=== PATIENT | male | born 1960 | race African-American/Black ===

== ENCOUNTER 2018-03-05 17:42 | Emergency (ER) | payer OTHER ==
[~2018-03-05] VITALS: Ht 189.9 cm; Wt 82.0 kg
[~2018-03-05 17:42] MED LIST: KETO10 PO; Z.0.NO CURRENT MEDS
[2018-03-05 17:48] VITALS: BP 154/78; PULSE 73; RESP 20; TEMP 97.8; O2SAT 99
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
[2018-03-05] MEDS ORDERED: IBUPROFEN 600 MG TAB PO ONE (18:15)
--- NOTE | 2018-03-05 18:38 | RADRPT ---
EXAM DATE: 03/05/2018 6:34 PM EDT AGE/SEX: 57 years / Male INDICATIONS: Evaluate for trauma, fell CLINICAL DATA: This is the patient's initial encounter. Patient reports that signs and symptoms have been present for 1 day and indicates a pain score of 0/10. MEDICAL/SURGICAL HISTORY: None. None. COMPARISON: None. FINDINGS: Examination of the pelvis demonstrates no evidence of fracture or dislocation. Bony mineralization i s normal. There is no widening of the sacroiliac joints. No foreign body is identified. CONCLUSION: Negative trauma study. Electronically signed by: Almas Valadez MD 03/05/2018 6:37 PM EDT
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
--- NOTE | 2018-03-05 18:48 | RADRPT ---
EXAM DATE: 03/05/2018 6:42 PM EDT AGE/SEX: 57 years / Male INDICATIONS: Right posterior tibia pain, fell CLINICAL DATA: This is the patient's initial encounter. Patient reports that signs and symptoms have been present for 1 day and indicates a pain score of 6/10. MEDICAL/SURGICAL HISTORY: None. None. COMPARISON: No prior [facility] exams available for comparison. FINDINGS: There is an horizontal fracture of the proximal one third shaft of the fibula with one cortex width d isplacement and no angulation. The tibia is intact. No radiopaque foreign bodies seen. CONCLUSION: Proximal fibular fracture. Electronically signed by: Ethan Prado MD 03/05/2018 6:47 PM EDT
--- NOTE | 2018-03-05 18:49 | RADRPT ---
EXAM DATE: 03/05/2018 6:36 PM EDT AGE/SEX: 57 years / Male INDICATIONS: Low back pain, fell CLINICAL DATA: This is the patient's initial encounter. Patient reports that signs and symptoms have been present for 1 day and indicates a pain score of 4/10. MEDICAL/SURGICAL HISTORY: None. None. COMPARISON: None. FINDINGS: AP, lateral and oblique views of the lumbar spine were obtained and demonstrate 5 nonrib-bearing lumb ar-type vertebra with mild scoliosis. There are mild degenerative disc changes at the L1-2 and L2-3 l evels. There is mild invagination of the superior endplates of the L1 and L2 vertebral bodies of inde terminate age. The sacrum is intact. CONCLUSION: 1. Mild invagination superior endplates of the L1 and L2 vertebral bodies which are indeterminant ag e but may be chronic. 2. Osteopenia, scoliosis and degenerative disc change. Electronically signed by: Almas Valadez MD 03/05/2018 6:48 PM EDT
[2018-03-05] MEDS ORDERED: ACETAMINOPHEN/HYDROcodone 325 MG/5 MG TAB PO ONE (19:00)
[2018-03-05] MEDS ORDERED: HYDR-3516 PO (19:05)
[2018-03-05 19:13] VITALS: BP 126/84; PULSE 65; RESP 20; O2SAT 99
[2018-03-05 19:29] LABS: BILIRUBIN, URINE NEG (NEG); BLOOD, URINE SMALL (NEG); CALCIUM OXALATE CRYSTALS,URINE OCC /hpf; GLUCOSE,URINE NEG (NEG); HYALINE CAST, URINE 2 /lpf (RARE); KETONE, URINE NEG (NEG); MUCUS URINE FEW /lpf (OCC); NITRITE,URINE NEG (NEG); URINE COLOR YELLOW (YELLW/STRAW); URINE LEUKOCYTE ESTERASE NEG (NEG)
[2018-03-05 20:22] VITALS: BP 140/86
== END 2018-03-05 20:37 | disposition home or self-care (01) ==
LOC: NEPD 17:42
DX: S82.831A Other fracture of upper and lower end of right fibula, initial encounter for closed fracture (principal); S20.229A Contusion of unspecified back wall of thorax, initial encounter; M41.9 Scoliosis, unspecified; I25.2 Old myocardial infarction; W13.2XXA Fall from, out of or through roof, initial encounter
CPT/HCPCS: 29515; 72072; 72110; 72170; 73590; 81001; 99284; E0113